=== PATIENT | male | born 1950 | race Caucasian/White ===

== ENCOUNTER → 2017-11-15 | Outpatient (CLI) | payer MEDICARE ==
[~2017-11-15] MED LIST: ALLO300 PO; ASPI-516 CHEW; CHLORHEXIDINE GLUCONATE 2 % 1 PACK (2 CLOTHS) TOPICAL PRN; CO Q100C9; EMPA1TAB3 PO; GLIP1TAB49 PO; LACTATED RINGER'S 1000 ML IV PRN; LATA0.002 EACH EYE; LIDOCAINE HCL 1% PF 5 ML SYRINGE OTHER ONE; LISI-515 PO; METF-382 PO; METO50TA PO; METOPROLOL TARTRATE 25 MG TAB PO PRN; MULT1TAB46; NIFE90TA2; OMEGCAP PO; OMEP20TA93 PO; POVIDONE IODINE 5% (ANTISEPSIS KIT) 4 APPLICATIONS EACH NARE PRN; PRAV40TA2 PO; PROPOFOL 200 MG/20 ML AMP IV ONE; SODIUM CHLORID 0.9% 500 ML IV PRN; TIMO0.5S30 EACH EYE
[2017-11-15 09:10] VITALS: BP 116/74; PULSE 88; RESP 20; TEMP 98.8; O2SAT 95
--- NOTE | 2017-11-15 12:34 | GIPROC ---
[facility] [address] [facility]. [facility] [place], [address] COLONOSCOPY PROCEDURE REPORT EXAM DATE: 11/15/2017 PATIENT NAME: Dallas Montes MR #: [id number] BIRTHDATE: 1950 ENDOSCOPIST: Rashmi Gallo MD ORDER #: [id number] [employer] OPERATOR: Wang Schumacher and Maya Walker STATUS: outpatient INDICATIONS: The patient is a 67 yr old male here for a colonoscopy due to diarrhea PROCEDURE PERFORMED: Colonoscopy with biopsy MEDICATIONS: None and Per Anesthesia. PREP QUALITY: fair PREP TYPE:Other: ESTIMATED BLOOD LOSS: None CONSENT: The patient understands the risks and benefits of the procedure and understands that these risks include, but are not limited to: sedation, allergic reaction, infection, perforation and/or bleeding. Alternative means of evaluation and treatment include, among others: physical exam, x-rays, and/or surgical intervention. The patient elects to proceed with this endoscopic procedure. medical equipment was checked for proper function. Hand hygiene and appropriate measures for infection prevention was taken. After the risks, benefits and alternatives of the procedure were thoroughly explained, Informed consent was verified, confirmed and timeout was successfully executed by the treatment team. A digital exam revealed external hemorrhoids and revealed an enlarged prostate The Pentax EC-[id number] endoscope was introduced through the anus and advanced to the cecum, which was identified by both the appendix and ileocecal valve. The instrument was then slowly withdrawn as the colon was fully examined. COLON FINDINGS: Diverticulosis sigmoid,descending internal hemorrhoids grade 1. Random biopsy from ascending and descending. Retroflexed views revealed internal hemorrhoids and Retroflexed views revealed small internal hemorrhoids The scope was then completely withdrawn from the patient and the procedure terminated. PROCEDURE WITHDRAWAL TIME:6minutes ADVERSE EVENTS: There were no complications. IMPRESSIONS: 1. Diverticulosis sigmoid,descending internal hemorrhoids grade 1 2. Retroflexed views revealed internal hemorrhoids 3. Retroflexed views revealed small internal hemorrhoids 4. Revealed external hemorrhoids 5. Revealed an enlarged prostate RECOMMENDATIONS: 1. Await biopsy results. Biopsy results will not be ready for 7-10 days. If you don't hear from us in two weeks, call our office for results. 2. Benefiber 2 tsp daily 3. Avoid NSAIDS and Aspirin 4. Probiotics from any [employer] or health food store 5. Yearly rectal exams RECALL: Return 5 years Colonoscopy Rashmi aGllo MD eSigned: Rashmi Gallo MD 11/15/2017 12:34 PM cc: PATIENT NAME: Dallas Montes MR#: [id number]
--- NOTE | 2017-11-15 12:38 | GIPROC ---
[facility] [address] [facility]. [facility], [address] EGD PROCEDURE REPORT EXAM DATE: 11/15/2017 PATIENT NAME: Dallas Montes MR #: [id number] BIRTHDATE: 1950 ATTENDING: Rashmi Gallo MD ORDER #: [id number] [employer] MEMBER: Thao Mac RN STATUS: outpatient INDICATIONS: The patient is a 67 yr old male here for an EGD due to diarrhea, reflux, dysphagia PROCEDURE PERFORMED: EGD w/ biopsy EGD w/ dilation of esophagus via guidewire MEDICATIONS: None and Per Anesthesia. TOPICAL ANESTHETIC: none CONSENT: The patient understands the risks and benefits of the procedure and understands that these risks include, but are not limited to: sedation, allergic reaction, infection, perforation and/or bleeding. Alternative means of evaluation and treatment include, among others: physical exam, x-rays, and/or surgical intervention. The patient elects to proceed with this endoscopic procedure. medical equipment was checked for proper function. Hand hygiene and appropriate measures for infection prevention was taken. After the risks, benefits and alternatives of the procedure were thoroughly explained, Informed consent was verified, confirmed and timeout was successfully executed by the treatment team. The patient was anesthetized with topical anesthesia and the Pentax [id number] endoscope was introduced through the mouth and advanced to the second portion of the duodenum. Retroflexed views revealed a hiatal hernia The gastroscope was then slowly withdrawn and removed. Gastritis antrum-biopsy esophagitis distal esophagus -biopsy duodenum normal -biopsy spasm distal esophagus-=s/p dilatation Savary dilator 16. ADVERSE EVENTS: There were no complications. IMPRESSIONS: 1. Gastritis antrum-biopsy esophagitis distal esophagus -biopsy duodenum normal -biopsy spasm distal esophagus-=s/p dilatation Savary dilator 16 2. Retroflexed views revealed a hiatal hernia RECOMMENDATIONS: 1. Await biopsy results. Biopsy results will not be ready for 7-10 days. If you don't hear from us in two weeks, call our office for biopsy results. 2. Anti-reflux regimen 3. Continue PPI 4. Dilatations PRN PATIENT CONDITION: stable DISPOSITION: Home REPEAT EXAM: Return 3 years EGD Rashmi Gallo MD eSigned: Rashmi Gallo MD 11/15/2017 12:37 PM cc: PATIENT NAME: SimonDallas MR#: [id number]
[2017-11-15 13:13] VITALS: BP 153/84; PULSE 94; RESP 18; TEMP 97; O2SAT 97
--- NOTE | 2017-11-15 16:02 | EKG ---
Date Performed: 11/15/2017 Time Performed: 09:12:00 PTAGE: 67 years EKG: Sinus rhythm NORMAL ECG Since the prior tracing, there has been no significant change PREVIOUS TRACING : 08/16/2014 09.08 DOCTOR: Mariel Lancaster Interpretating Date/Time 11/15/2017 15:59:55
== END ==
LOC: HEND 08:12
PROVIDERS: ATTEND Internal Medicine Gastroenterology
DX: K52.9 Noninfective gastroenteritis and colitis, unspecified (principal); K29.70 Gastritis, unspecified, without bleeding; K22.4 Dyskinesia of esophagus; K44.9 Diaphragmatic hernia without obstruction or gangrene; K57.30 Diverticulosis of large intestine without perforation or abscess without bleeding; K64.4 Residual hemorrhoidal skin tags; K64.8 Other hemorrhoids; N40.0 Benign prostatic hyperplasia without lower urinary tract symptoms; G47.30 Sleep apnea, unspecified; R03.0 Elevated blood-pressure reading, without diagnosis of hypertension; I70.0 Atherosclerosis of aorta; I25.10 Atherosclerotic heart disease of native coronary artery without angina pectoris; E11.49 Type 2 diabetes mellitus with other diabetic neurological complication; E11.29 Type 2 diabetes mellitus with other diabetic kidney complication; I12.9 Hypertensive chronic kidney disease with stage 1 through stage 4 chronic kidney disease, or unspecified chronic kidney disease; E11.22 Type 2 diabetes mellitus with diabetic chronic kidney disease; N18.2 Chronic kidney disease, stage 2 (mild); J30.9 Allergic rhinitis, unspecified; E78.5 Hyperlipidemia, unspecified; K21.9 Gastro-esophageal reflux disease without esophagitis; M10.9 Gout, unspecified; K76.0 Fatty (change of) liver, not elsewhere classified; I47.1 Supraventricular tachycardia; H40.1131 Primary open-angle glaucoma, bilateral, mild stage; H25.13 Age-related nuclear cataract, bilateral; E55.9 Vitamin D deficiency, unspecified; M51.36 Other intervertebral disc degeneration, lumbar region; Z79.84 Long term (current) use of oral hypoglycemic drugs; Z68.32 Body mass index [BMI] 32.0-32.9, adult; E11.3292 Type 2 diabetes mellitus with mild nonproliferative diabetic retinopathy without macular edema, left eye; M22.41 Chondromalacia patellae, right knee
CPT/HCPCS: 00813; 43239; 43248; 45380; 88305; 93005; C1769; 88312